=== PATIENT | female | born 1970 | race African-American/Black ===

== ENCOUNTER 2017-09-28 14:00 | Emergency (ER) | payer MEDICAID, OTHER ==
[~2017-09-28] VITALS: Ht 144.8 cm; Wt 76.7 kg
[~2017-09-28 14:00] MED LIST: AZITHROMYCIN250 MG ORAL; CEPHALEXIN500 MG ORAL; CEPHALEXIN500 MG PO; CIPROFLOXACIN500 M2 ORAL; IBUPROFEN600 MG ORAL; IBUPROFEN600 MG PO; IBUPROFEN800 MG ORAL; MEDROL DOSEPAK4 MG ORAL; NKM; NORCO 5-325 TA1 EACH ORAL; PSEUDOEPHEDRINE30 MG PO; TOBRAMYCIN5 ML OPHTHALM; TRAMADOL HCL50 MG ORAL
[2017-09-28] MEDS ORDERED: DiphenhydrAMINE 50mg/ml Inj IVP ONE (14:30)
[2017-09-28] MEDS ORDERED: Solu-MEDROL 125mg Inj IVP ONE (14:30)
[2017-09-28 14:42] VITALS: BP 136/90
--- NOTE | 2017-09-28 15:09 | Emergency Room Report ---
History of Present Illness General Chief Complaint: Allergic Reaction Source: Patient Present Illness HPI 46-year-old female presents to ED for evaluation. Patient notes swelling to her face and lips and her hands. Started today shortly after applying a new lotion. Patient denies any known allergies. Denies any tongue swelling or throat swelling. Denies any shortness of breath. No other aggravating relieving factors. Denies any other associated symptoms Allergies: Coded Allergies: No Known Allergies (Unverified , 12/03/12) Patient History Past Medical History: asthma Past Surgical History: none Pertinent Family History: none Social History: Denies: smoking, alcohol use, drug use Last Menstrual Period: 08/31/17 Now: No Immunizations: UTD Reviewed Nursing Documentation: PMH: Agreed, PSxH: Agreed Nursing Documentation-PMH Hx Asthma: Yes Review of Systems All Other Systems: negative except mentioned in HPI Physical Exam Vital Signs Date Time Temp Pulse Resp B/P (MAP) Pulse Ox O2 Delivery O2 Flow Rate FiO2 09/28/17 14:08 99.1 98 18 166/87 98 Room Air 99.1 Sp02 EP Interpretation: reviewed, normal General Appearance: no apparent distress, alert, GCS 15, non-toxic Head: normocephalic Eyes: bilateral eye normal inspection, bilateral eye PERRL ENT: TMs + canals normal, other - lip swelling Neck: full range of motion, supple/symm/no masses, other - no stridor Respiratory: chest non-tender, lungs clear, normal breath sounds, speaking full sentences Cardiovascular #1: regular rate, rhythm, no edema Gastrointestinal: normal bowel sounds, non tender, soft, non-distended, no guarding, no rebound Rectal: deferred Genitourinary: no CVA tenderness Musculoskeletal: normal inspection Neurologic: alert, oriented x3, responsive, motor strength/tone normal, sensory intact, speech normal Psychiatric: normal inspection Skin: other - urticaria to hands Lymphatic: normal inspection Medical Decision Making Diagnostic Impression: Primary Impression: Allergic reaction Qualified Codes: T78.40XA - Allergy, unspecified, initial encounter ER Course Hospital Course 46-year-old female presents ED complaining of lip and facial swelling and hand swelling with itchiness after using a new lotion. 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 Facial swelling lip swelling has improved. Urticaria has since resolved. Patient observed with no evidence of stridor or tongue swelling. Therefore I believe patient can be safely discharged to home. i. I feel this is a highly complex case requiring extensive working including EKG/Rhythm strip, Xray/CT/US, Blood/urine lab work, repeat exams while in ED, and administration of strong opiates/narcotics for pain control, admission to hospital or close patient follow up. Diagnosis - allergic reaction Stable and discharged to home with prescriptions for Zantac, prednisone, Benadryl. Followup with PMD. Return to ED if symptoms recur or worsen Last Vital Signs Date Time Temp Pulse Resp B/P (MAP) Pulse Ox O2 Delivery O2 Flow Rate FiO2 09/28/17 14:42 99.1 18 136/90 98 Room Air 99.1 09/28/17 14:08 98 Status: improved Disposition: HOME, SELF-CARE Condition: Stable Scripts Ranitidine Hcl* (ZANTAC*) 150 Mg Tablet 150 MG ORAL TWICE A DAY, #30 TAB Prov: HALLIE NORRIS M.D. 09/28/17 Diphenhydramine Hcl* (DIPHENHYDRAMINE HCL*) 25 Mg Capsule 25 MG ORAL Q6H Y for Itching for 5 Days, #30 CAP 0 Refills Prov: HALLIE NORRIS M.D. 09/28/17 Prednisone* (PREDNISONE*) 20 Mg Tablet 40 MG ORAL DAILY, #10 TAB Prov: HALLIE NORRIS M.D. 09/28/17 Referrals: [facility],REFERRING (PCP) HALLIE NORRIS M.D. Sep 28, 2017 15:09
[2017-09-28] MEDS ORDERED: DIPHENHYDRAMINE25 M1 ORAL (15:32)
[2017-09-28] MEDS ORDERED: RANITIDINE HCL150 MG ORAL (15:32)
[2017-09-28] MEDS ORDERED: PREDNISONE20 MG ORAL (15:32)
[2017-09-28 15:38] VITALS: BP 136/90
== END 2017-09-28 15:39 | disposition home or self-care (01) ==
LOC: EMR 14:38
DX: T78.40XA Allergy, unspecified, initial encounter (principal); X58.XXXA Exposure to other specified factors, initial encounter; L29.9 Pruritus, unspecified; J45.909 Unspecified asthma, uncomplicated; L50.9 Urticaria, unspecified
CPT/HCPCS: 99283; J1200; J2930; S0028

== ENCOUNTER 2017-11-07 09:47 | Emergency (ER) | payer MEDICAID ==
[~2017-11-07] VITALS: Ht 144.8 cm; Wt 77.6 kg
[~2017-11-07 09:47] MED LIST changes: +DIPHENHYDRAMINE25 M1 ORAL; +PREDNISONE20 MG ORAL; +RANITIDINE HCL150 MG ORAL
[2017-11-07 10:10] VITALS: BP 156/98
[2017-11-07] MEDS ORDERED: RANITIDINE HCL150 MG ORAL (10:46)
[2017-11-07] MEDS ORDERED: PREDNISONE20 MG ORAL (10:46)
[2017-11-07 10:49] VITALS: BP 156/98
--- NOTE | 2017-11-07 11:53 | Emergency Room Report ---
History of Present Illness General Chief Complaint: Earache Source: Patient Present Illness HPI 46-year-old female presents ED for evaluation. Patient complaining of bilateral ear fullness and popping sensation times one week. Pain is dull, 3 out of 10, nonradiating. Also noting congestion and runny nose. Denies fevers or chills. Denies sore throat. Denies sick contacts or recent travel. Patient also noting some right upper lip swelling. States she was seen here last month for similar presentation. Was prescribed medications which helped. Denies any known food or drug allergies. Denies tongue swelling or throat swelling. Denies rash. No other aggravating relieving factors. Denies any other associated symptoms Allergies: Coded Allergies: No Known Allergies (Unverified , 12/03/12) Patient History Past Medical History: asthma Past Surgical History: none Pertinent Family History: none Social History: Denies: smoking, alcohol use, drug use Last Menstrual Period: 11/04/17 Now: No Immunizations: UTD Reviewed Nursing Documentation: PMH: Agreed; PSxH: Agreed Nursing Documentation-PMH Hx Asthma: Yes Review of Systems All Other Systems: negative except mentioned in HPI Physical Exam Vital Signs Date Time Temp Pulse Resp B/P (MAP) Pulse Ox O2 Delivery O2 Flow Rate FiO2 11/07/17 10:02 98.5 92 18 156/98 97 Room Air 98.4 Sp02 EP Interpretation: reviewed, normal General Appearance: no apparent distress, alert, GCS 15, non-toxic Head: normocephalic, atraumatic Eyes: bilateral eye normal inspection, bilateral eye PERRL ENT: hearing grossly normal, normal pharynx, no angioedema, normal voice, other - minimal R upper lip swelling Neck: full range of motion, supple/symm/no masses Respiratory: chest non-tender, lungs clear, normal breath sounds, speaking full sentences Cardiovascular #1: regular rate, rhythm, no edema Cardiovascular #2: 2+ carotid (R), 2+ carotid (L), 2+ radial (R), 2+ radial (L) , 2+ dorsalis pedis (R), 2+ dorsalis pedis (L) Gastrointestinal: normal bowel sounds, non tender, soft, non-distended, no guarding, no rebound Rectal: deferred Genitourinary: normal inspection, no CVA tenderness Musculoskeletal: back normal, gait/station normal, normal range of motion, non- tender Neurologic: alert, oriented x3, responsive, motor strength/tone normal, sensory intact, speech normal Psychiatric: judgement/insight normal, memory normal, mood/affect normal, no suicidal/homicidal ideation Reflexes: 3+ bicep (R), 3+ bicep (L), 3+ tricep (R), 3+ tricep (L), 3+ knee (R) , 3+ knee (L) Skin: normal color, no rash, warm/dry, well hydrated Lymphatic: no adenopathy Medical Decision Making Diagnostic Impression: Primary Impression: Upper respiratory infection Qualified Codes: J06.9 - Acute upper respiratory infection, unspecified Additional Impression: Allergic reaction Qualified Codes: T78.40XD - Allergy, unspecified, subsequent encounter ER Course Hospital Course 46-year-old female presents ED complaining of bilateral ear fullness, runny nose , congestion. Right upper lip swelling Differential diagnoses include: URI, pharyngitis, otitis media, asthma Clinical course Patient placed on stretcher. After initial history, physical exam reveals a female in no acute distress. Bilateral TM unremarkable. No pharyngeal erythema. No tonsillar exudates. No lymphadenopathy. lungs clear. abdomen soft. minimal R upper lip swelling. no stridor. no tongue swelling. no urticaria Discussed findings with patient. Patient is likely congested from upper respiratory infection. Symptomatic treatment. No antibiotics required. Patient appears nontoxic, afebrile. I saw the patient in September for similar lip swelling which was worse at the time. Patient was prescribed prednisone, Benadryl, Zantac. Patient states the medications were helping. I will provide her refills of these medications. 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 Instructed to followup with PMD. Return to ED if symptoms recur or worsen Last Vital Signs Date Time Temp Pulse Resp B/P (MAP) Pulse Ox O2 Delivery O2 Flow Rate FiO2 11/07/17 10:49 98.4 84 18 156/98 98 Room Air 98.4 Status: improved Disposition: HOME, SELF-CARE Condition: Stable Scripts Prednisone* (PREDNISONE*) 20 Mg Tablet 40 MG ORAL DAILY, #10 TAB Prov: Philippe Lo MD 11/07/17 Ranitidine Hcl* (ZANTAC*) 150 Mg Tablet 150 MG ORAL TWICE A DAY, #30 TAB Prov: Philippe Lo MD 11/07/17 Patient Instructions: Upper Respiratory Infection, Adult, [id number] Additional Instructions: take multisymptom medication like tylenol cold and flu, or dayquil/nyquil Philippe Lo MD Nov 07, 2017 11:53
== END 2017-11-07 10:50 | disposition home or self-care (01) ==
LOC: EMR 10:35
DX: J06.9 Acute upper respiratory infection, unspecified (principal); T78.40XA Allergy, unspecified, initial encounter; X58.XXXA Exposure to other specified factors, initial encounter; J45.909 Unspecified asthma, uncomplicated
CPT/HCPCS: 99284

== ENCOUNTER 2018-10-05 09:41 | Emergency (ER) | payer MEDICAID ==
[~2018-10-05] VITALS: Ht 144.8 cm; Wt 77.1 kg
[2018-10-05] MEDS ORDERED: IBUPROFEN600 MG ORAL (10:14)
[2018-10-05] MEDS ORDERED: AMOXICILLIN500 MG ORAL (10:14)
[2018-10-05 11:00] VITALS: BP 116/74
[2018-10-05 11:02] VITALS: BP 116/74
--- NOTE | 2018-10-05 11:02 | NUR ---
ER DISCHARGE NOTE: Patient is cleared to be discharged per ERMD, pt is aox4, on room air, with stable vital signs. pt was given dc and prescription instructions, pt was able to verbalize understanding, pt id band and iv site removed without complications. pt is able to ambulate with steady gait. pt took all belongings.
--- NOTE | 2018-10-05 13:30 | Emergency Room Report ---
History of Present Illness General Chief Complaint: Earache Source: Patient Present Illness HPI 47-year-old female presents ED for evaluation. Complaining of left ear pain 1 day. Pain is throbbing, 8 out of 10, nonradiating. Denies sore throat or cough. Denies fevers or chills. Denies sick contacts or recent travel. No other aggravating relieving factors. Denies any other associated symptoms Allergies: Coded Allergies: No Known Allergies (Unverified , 12/03/12) Patient History Past Medical History: asthma Past Surgical History: none Pertinent Family History: none Social History: Denies: smoking, alcohol use, drug use Last Menstrual Period: 09/09/18 Now: No Immunizations: UTD Reviewed Nursing Documentation: PMH: Agreed; PSxH: Agreed Nursing Documentation-PMH Past Medical History: No History, Except For Hx Asthma: Yes Review of Systems All Other Systems: negative except mentioned in HPI Physical Exam Vital Signs Date Time Temp Pulse Resp B/P (MAP) Pulse Ox O2 Delivery O2 Flow Rate FiO2 10/05/18 09:46 99.0 90 20 116/74 98 Room Air Sp02 EP Interpretation: reviewed, normal General Appearance: no apparent distress, alert, GCS 15, non-toxic Head: normocephalic Eyes: bilateral eye normal inspection, bilateral eye PERRL ENT: hearing grossly normal, normal pharynx, no angioedema, normal voice, other - L TM poor light reflex Neck: full range of motion, supple, no meningismus, supple/symm/no masses Respiratory: normal inspection Cardiovascular #1: normal inspection Gastrointestinal: normal inspection Rectal: deferred Genitourinary: no CVA tenderness Musculoskeletal: normal inspection Neurologic: alert, oriented x3, responsive, motor strength/tone normal, sensory intact, speech normal Psychiatric: normal inspection Skin: normal inspection Lymphatic: adenopathy Medical Decision Making Diagnostic Impression: Primary Impression: Otitis media Qualified Codes: H66.92 - Otitis media, unspecified, left ear ER Course Hospital Course 47-year-old F presents to ED with pain L ear. no fever. Differential diagnoses include: TM perforation, otitis externa, otitis media Clinical course Patient placed on stretcher. After initial history, physical exam reveals a female in no acute distress. L TM poor light reflex. Some left-sided submandibular lymphadenopathy. Remainder of exam unremarkable Discussed findings with patient. Consideration for otitis media. We'll discharge and antibiotics. Safe for discharge and close outpatient follow-up. We'll provide referrals Diagnosis - otitis media Stable and discharged to home with Rx amoxicillin, motrin. Followup with PMD. Return to ED if symptoms recur or worsen Last Vital Signs Date Time Temp Pulse Resp B/P (MAP) Pulse Ox O2 Delivery O2 Flow Rate FiO2 10/05/18 11:02 99.0 78 20 116/74 98 Room Air Status: improved Disposition: HOME, SELF-CARE Condition: Stable Scripts Ibuprofen* (MOTRIN*) 600 Mg Tablet 600 MG ORAL Q8H PRN for For Pain, #30 TAB 0 Refills Prov: Philippe Lo MD 10/05/18 Amoxicillin* (AMOXIL*) 500 Mg Capsule 500 MG ORAL THREE TIMES A DAY for 10 Days, CAP Prov: Philippe Lo MD 10/05/18 Referrals: [facility],REFERRING (PCP) Aubree Goldberg Comp. [facility] Patient Instructions: Otitis Media, Adult Philippe Lo MD Oct 05, 2018 13:30
== END 2018-10-05 10:30 | disposition home or self-care (01) ==
LOC: EMR 10:10
DX: H66.92 Otitis media, unspecified, left ear (principal); J45.909 Unspecified asthma, uncomplicated
CPT/HCPCS: 99282